=== PATIENT | male | born 1975 | race African-American/Black ===

== ENCOUNTER 2016-07-27 00:03 | Emergency (ER) | payer SELFPAY ==
[~2016-07-27] VITALS: Ht 190.5 cm; Wt 98.4 kg
[~2016-07-27 00:03] MED LIST: MOTRIN800 MG PO; ULTRAM50 MG PO
[2016-07-27 00:37] VITALS: BP 151/84
== END 2016-07-27 00:37 ==
LOC: EME 00:03
DX: F14.129 Cocaine abuse with intoxication, unspecified (principal); F10.99 Alcohol use, unspecified with unspecified alcohol-induced disorder; F17.200 Nicotine dependence, unspecified, uncomplicated
CPT/HCPCS: 99281; 99283